=== PATIENT | female | born 1950 | race Caucasian/White ===

== ENCOUNTER 2016-08-20 16:59 | Emergency (ER) | payer MEDICARE ==
--- NOTE | 2016-08-21 11:40 | ER ---
ADMIT: 08/20/2016 RM/LOC: [facility] MR#: [id number] 26[address] [facility] [address] [place], [place] [address] CHRISTINA VEGA [address] [place] [address] Emergency Room Report SEX: F AGE: 66 : 1950 DATE: 08/20/2016 For chief complaint, history of present illness, past medical history, medications, allergies, review of systems, including physical exam, please see my T-sheet. INTERIM HISTORY: The patient is a 66-year-old white female, who presents to the emergency room with vomiting, diarrhea, and abdominal pain. It has been going on for about a day, woke up early this morning with her symptoms. She has been a little bit shaky and has felt "off." PAST MEDICAL HISTORY: Significant for appendectomy, cholecystectomy, and hysterectomy. She has also had a history of a DVT that they were not really sure from what with pulmonary embolism she is anticoagulated. She has not been running any fevers. Vital signs are stable excluding being slightly tachycardic at 113. On re-evaluation, she is 63. PHYSICAL EXAMINATION: ABDOMEN: Soft. There is no guarding and no rebound. LABORATORY EVALUATION: She does have a urinary tract infection with 286 white cells and 6 red cells. White count is normal. Chemistries are normal. EMERGENCY ROOM COURSE: The patient received IV fluids, a liter of bolus. She also received Levaquin 750 mg here in the Emergency Department. IMPRESSION: Urinary tract infection. PLAN: Home rest. Activity as tolerated. The patient was given instructions to drink plenty of fluids and follow up with her primary care after the antibiotics finished to be sure the infection is completely resolved. The patient is in stable condition. JUNIE Bridges / Sami Jerez MD / casi JOB #: [id number] CC: Sami Jerez MD, Attending Physician Sasha Corey PA-C, Family Physician
[2016-08-26] MEDS ORDERED: SYNTHROID25 MCG PO (19:56)
[2016-08-26] MEDS ORDERED: COUMADIN5 MG PO ×2 (19:56→19:57)
[2016-08-26] MEDS ORDERED: FEOSOL-DPS325 MG PO (19:57)
[2016-08-26] MEDS ORDERED: REQUIP0.25 MG PO (19:57)
[2016-08-26] MEDS ORDERED: ZESTRIL DPS10 MG PO (19:57)
[2016-08-26] MEDS ORDERED: EFFEXOR XR75 MG PO (19:58)
[2016-08-26] MEDS ORDERED: LOPRESSOR DPS50 MG PO (19:58)
[2016-08-26] MEDS ORDERED: DITROPAN-DPS5 MG PO (19:58)
[2016-08-26] MEDS ORDERED: VALIUM-DPS2 MG PO (20:00)
[2016-08-26] MEDS ORDERED: FLONASE 0.05% D16 GM NS (20:00)
[2016-08-26] MEDS ORDERED: TYLENOL #3 DPS1 TAB PO (20:00)
[2016-08-26] MEDS ORDERED: DULERA 200/58.8 GM IH (20:01)
[2016-08-26] MEDS ORDERED: TYLENOL DPS325 MG PO (20:01)
[2016-08-26] MEDS ORDERED: VITAMIN B-650 MG PO (20:01)
[2016-08-26] MEDS ORDERED: VENTOLIN HFA8 GM IH (20:01)
[2016-08-26] MEDS ORDERED: COLACE-DPS100 MG PO (20:02)
[2016-08-26] MEDS ORDERED: LEVAQUIN DPS500 MG PO (20:02)
[2016-08-26] MEDS ORDERED: MAALOX DPS30 ML PO (20:02)
[2016-10-22] MEDS ORDERED: CELEBREX200 MG PO (12:49)
[2016-10-22] MEDS ORDERED: LOVENOX DP100 MG/1 M SQ (12:57)
[2016-10-22] MEDS ORDERED: ULTRAM DPS50 MG PO (12:59)
[2016-10-22] MEDS ORDERED: MIRALAX PACKET17 GM PO (13:01)
[2016-10-22] MEDS ORDERED: DULCOLAX-DPS10 MG PR (13:02)
[2016-10-22] MEDS ORDERED: MILK OF MAGNESI10 ML PO (13:02)
[2016-10-22] MEDS ORDERED: TUMS DPS500 MG PO (13:03)
[2016-10-22] MEDS ORDERED: OXY IR DPS5 MG PO (13:03)
[2016-10-22] MEDS ORDERED: FLEXERIL-DPS10 MG PO (13:03)
[2016-10-22] MEDS ORDERED: ENEMA READY TO133 ML PR (13:04)
[2016-10-22] MEDS ORDERED: SENOKOT S1 TAB PO (13:06)
== END 2016-08-20 21:10 | disposition home or self-care (01) ==
LOC: ER 16:59
DX: N39.0 Urinary tract infection, site not specified (principal); Z90.49 Acquired absence of other specified parts of digestive tract; Z86.711 Personal history of pulmonary embolism; Z79.01 Long term (current) use of anticoagulants; Z86.718 Personal history of other venous thrombosis and embolism; Z90.710 Acquired absence of both cervix and uterus

== ENCOUNTER → 2016-09-19 | Outpatient (CLI) | payer MEDICARE, MEDICAID ==
[~2016-09-19] MED LIST: CELEBREX200 MG PO; COLACE-DPS100 MG PO; COUMADIN5 MG PO; DITROPAN-DPS5 MG PO; DULCOLAX-DPS10 MG PR; DULERA 200/58.8 GM IH; EFFEXOR XR75 MG PO; ENEMA READY TO133 ML PR; FEOSOL-DPS325 MG PO; FLEXERIL-DPS10 MG PO; FLONASE 0.05% D16 GM NS; LEVAQUIN DPS500 MG PO; LOPRESSOR DPS50 MG PO; LOVENOX DP100 MG/1 M SQ; MAALOX DPS30 ML PO; MILK OF MAGNESI10 ML PO; MIRALAX PACKET17 GM PO; OXY IR DPS5 MG PO; REQUIP0.25 MG PO; SENOKOT S1 TAB PO; SYNTHROID25 MCG PO; TUMS DPS500 MG PO; TYLENOL #3 DPS1 TAB PO; TYLENOL DPS325 MG PO; ULTRAM DPS50 MG PO; VALIUM-DPS2 MG PO; VENTOLIN HFA8 GM IH; VITAMIN B-650 MG PO; ZESTRIL DPS10 MG PO
== END | disposition home or self-care (01) ==
LOC: PTH.S 09-17 11:11 → SSS 10:56 → PTH.S 12:14
DX: Z01.818 Encounter for other preprocedural examination (principal)

== ENCOUNTER 2016-10-01 11:09 | Inpatient (IN) | payer MEDICARE, MEDICAID ==
[~2016-10-01] VITALS: Ht 165.1 cm; Wt 107.7 kg
[~2016-10-01 11:09] MED LIST changes: -CELEBREX200 MG PO; -DULCOLAX-DPS10 MG PR; -ENEMA READY TO133 ML PR; -FLEXERIL-DPS10 MG PO; -LOVENOX DP100 MG/1 M SQ; -MILK OF MAGNESI10 ML PO; -MIRALAX PACKET17 GM PO; -OXY IR DPS5 MG PO; -SENOKOT S1 TAB PO; -TUMS DPS500 MG PO; -ULTRAM DPS50 MG PO
--- NOTE | 2016-10-20 09:27 | OR ---
ADMIT: 10/18/2016 RM/LOC: 530 [facility] MR#: [id number] [address] [address] CHRISTINA VEGA [address] [place] [address] Operative/Delivery Room Report SEX: F AGE: 66 : 1950 SURGERY DATE: 10/18/2016 SURGEON: Clint Summers MD PREOPERATIVE DIAGNOSES: 1. Right hip degenerative joint disease. 2. Morbid obesity. POSTOPERATIVE DIAGNOSES: 1. Right hip degenerative joint disease. 2. Morbid obesity. PROCEDURES: 1. Right standard total hip arthroplasty. 2. Intraarticular block. ASSISTANTS: 1. Arsh Jason PA-C. 2. JUNIE Nguyễn. COMPLICATIONS: None. BLOOD LOSS: 200 mL. COMPONENTS: 1. A 52-mm Gription Hancock cup. 2. A 36 mm neutral AltrX liner. 3. Hole eliminator. 4. One acetabular screw. 5. An 8 standard offset Center stem. 6. +5, 36 mm metal head. DESCRIPTION OF PROCEDURE: The patient taken to the operating room, received a spinal anesthetic. She required extra assistance in OR due to her morbid obesity and deep tissues. She was placed in lateral decubitus position. The right hip was prepped and draped in a standard fashion. A posterior approach was performed. Dissection was carried to subcutaneous tissue. Her hip was very stiff. We identified the IT band and divided the fascia into the gluteus shun. At that point, identified the piriformis tendon. We released the piriformis tendon capsule and external rotators and one capsular flap. We were able then to dislocate the hip. At that point, we opened up the piriformis fossa with a reamer, reamed up to a size 7 reamer. Made a preliminary femoral neck cut based on templating. We then broached up to a size 7 stem, this was a still little bit loose, we reamed and broached up to a size 8. At that point, we had excellent stability. At that point, we left the broach in the canal to protect it. We then exposed the acetabulum. Her labrum was already calcified. We sequentially reamed up to a 51 mm reamer. We elected to use a 52-mm Gription cup using internal landmarks. We impacted a 52-mm Gription Hancock cup with an excellent press fit. We did place one supplemental screw for ADMIT: 10/18/2016 RM/LOC: 530 [facility] MR#: [id number] [address] [address] [facility] [place] [address] Operative/Delivery Room Report SEX: F AGE: 66 : 1950 fixation. At that point, placed a hole eliminator, impacted a 36 mm neutral AltrX liner. I did a partial intra-articular block around the acetabulum. At that point, we reduced the hip with a standard offset +5 head. At that point, we had good soft tissue tension. Could flex and internally rotate to 70 degrees with no dislocation. No impingement in extension. Good coverage in the position of sleep. At that point, dislocated the hip, removed the trial implants, re-exposed the femur, removed the broach, impacted a size 8 standard offset Center stem with an excellent press fit. Impacted a +5, 36 mm head and reduced the hip. It was again found to be stable. We completed our intraarticular block, repaired the posterior capsular structures with #5 Tycron and interrupted 0 Vicryl. Closed the tensor fascia with one #5 Tycron followed by interrupted and running 0 Vicryl suture, closed some of the deep fat with 0 Vicryl, some of the subcutaneous fat with 2-0 Vicryl, ran a subcuticular stitch followed by a Prineo hip wound dressing. At that point, she was taken to recovery room in stable condition with no complications. Clint Summers MD/ casi JOB #: [id number] CC: Clint Summers, Attending Physician Eduar Moran, Family Physician
[2016-10-22] MEDS ORDERED: CELEBREX200 MG PO (12:49)
[2016-10-22] MEDS ORDERED: LOVENOX DP100 MG/1 M SQ (12:57)
[2016-10-22] MEDS ORDERED: ULTRAM DPS50 MG PO (12:59)
[2016-10-22] MEDS ORDERED: MIRALAX PACKET17 GM PO (13:01)
[2016-10-22] MEDS ORDERED: MILK OF MAGNESI10 ML PO (13:02)
[2016-10-22] MEDS ORDERED: DULCOLAX-DPS10 MG PR (13:02)
[2016-10-22] MEDS ORDERED: FLEXERIL-DPS10 MG PO (13:03)
[2016-10-22] MEDS ORDERED: TUMS DPS500 MG PO (13:03)
[2016-10-22] MEDS ORDERED: OXY IR DPS5 MG PO (13:03)
[2016-10-22] MEDS ORDERED: ENEMA READY TO133 ML PR (13:04)
[2016-10-22] MEDS ORDERED: SENOKOT S1 TAB PO (13:06)
--- NOTE | 2016-10-29 10:16 | HP ---
ADMIT: 10/18/2016 RM/LOC: [facility] MR#: [id number] [address] [address] [address]ST[address] VEGA [address] [place] [address] Pre-OP History and Physical SEX: F AGE: 66 : 1950 DATE OF SERVICE: CHIEF COMPLAINT: Hip pain. HISTORY OF PRESENT ILLNESS: The patient is a 66-year-old female with a longstanding of history right hip pain. Hip pain limits her activity. She is now being cleared by Cardiology. Failed conservative care. Admitted for total hip arthroplasty. PAST MEDICAL PROBLEMS: Include a history of asthma, coronary artery disease, hypertension, history of DVTs. PAST SURGICAL HISTORY: Include hysterectomy and breast biopsy. MEDICATIONS: 1. Oxybutynin. 2. Vitamins. 3. Iron. 4. Tylenol. 5. Levothyroxine. 6. Advair. 7. Ventolin. 8. Hydrochlorothiazide. 9. Lisinopril. 10.Valium,. 11.Venlafaxine. 12.Coumadin. 13.Metoprolol. ALLERGIES: NONE. SOCIAL HISTORY: Denies any significant tobacco or alcohol use. REVIEW OF SYSTEMS: Negative. PHYSICAL EXAMINATION: Morbidly obese female, walks with very antalgic gait. She has a probably 30 degree external rotation contracture to the hip, minimal back pain. Pain with any motion of the right hip reproduces her symptoms. Leg is neurovascularly intact. ADMIT: 10/18/2016 RM/LOC: [facility] MR#: [id number] [address] [address] CHRISTINA VEGA [address] [place] [address] Pre-OP History and Physical SEX: F AGE: 66 : 1950 DIAGNOSTIC DATA: X-rays AP, lateral, shows advanced right hip arthritis. No joint space remaining. IMPRESSION: 1. Advanced right hip degenerative joint disease. 2. Morbid obesity. 3. History of deep vein thrombosis and pulmonary embolism. PLAN: We talked about different options. She has failed conservative care. At this point, plan on proceeding with a right standard total hip arthroplasty. She is aware of the risks, benefits, options and agreed to proceed. She has been seen and cleared from a medical standpoint. Clint Summers MD/ casi JOB #: [id number] CC: Clint Summers, Attending Physician UNKNOWN, Family Physician
--- NOTE | 2016-12-01 16:13 | CO ---
ADMIT: 10/18/2016 RM[facility]LOC: [facility] MR#: [id number] 2620 [facility] [address] [place] [address] [address]STINA VEGA [address] [place] [address] Consultation Report SEX: F AGE: 66 : 1950 DATE OF CONSULTATION: 10/07/2016 ATTENDING PHYSICIAN: Clint Summers CONSULTING PHYSICIAN: Eduar Moran MD REASON FOR CONSULT: Preoperative clearance. HISTORY OF PRESENT ILLNESS: Christina is a 66-year-old white female, who has had significant problems with right hip pain. She has exhausted all conservative measures. She is ambulatory with a cane barely, significant antalgic gait despite narcotic pain medication. Therefore, she is ready for right hip replacement. Her case is complicated by the fact that she does have a history of DVT and pulmonary emboli and will need to be on Lovenox bridge while she is off her Coumadin prior to the surgery, so she is here today to discuss that. She did have a recent stress test and echocardiogram last week at [facility], which was unremarkable and is ready to proceed. PAST MEDICAL HISTORY: Remarkable for: 1. Asthma. 2. Morbid obesity. 3. Meniere's disease. 4. Depression. 5. Hypothyroidism. 6. Urinary incontinence. 7. Hypertension. 8. Obstructive sleep apnea. 9. Restless legs syndrome. 10.Prior DVT and pulmonary emboli. PAST SURGICAL HISTORY: Include: 1. Partial hysterectomy. 2. Cholecystectomy. 3. Appendectomy. CURRENT MEDICATIONS: Include: 1. Advair Diskus 250/50, one inhalation b.i.d. 2. Ferrous sulfate 325 mg daily. 3. Fluticasone two sprays each side daily. 4. Vitamin B6, 100 mg b.i.d. 5. Hydrochlorothiazide 25 mg daily. 6. Percocet 5/325, one to two q.6 hours p.r.n. 7. Levothyroxine 25 mcg daily. 8. Lisinopril 10 mg daily. 9. Metoprolol 50 mg b.i.d. 10.Oxybutynin 5 mg b.i.d. 11.Ropinirole 0.25 mg at bedtime. 12.Venlafaxine ER 75 mg daily. 13.Warfarin 7.5 mg Friday and , and 5 mg Friday, Friday, Friday, ADMIT: 10/18/2016 RM/LOC: [facility] MR#: [id number] [address] [address] [facility] [place] [address] Consultation Report SEX: F AGE: 66 : 1950 Friday, and Friday. 14.Ventolin HFA two puffs q.6 hours p.r.n. ALLERGIES: ERIC INHIBITORS. SOCIAL HISTORY: She lives alone. Does not smoke or drink alcohol. She is retired. FAMILY HISTORY: Mother with diabetes. Father with leukemia. Two brothers with diabetes. One sister with diabetes. REVIEW OF SYSTEMS: GENERAL: No fevers or chills. HEENT: No headaches, blurry vision, or double vision. CARDIAC: No chest pains. PULMONARY: No shortness of breath. GASTROINTESTINAL: No nausea, vomiting, or diarrhea. : No dysuria, urgency, or frequency. Does have urinary incontinence. ENDOCRINE: No polyuria or polydipsia. PSYCH: No depression. INTEGUMENTARY: No new rashes. PHYSICAL EXAMINATION: VITAL SIGNS: Blood pressure is 126/76, pulse 57, respirations 18, temp 98.3. GENERAL: No acute distress. Alert, interactive, and oriented. HEENT: Pupils are reactive. Conjunctivae clear. TMs are clear. External pinnae are normal. Clear nasal mucosa. Clear oropharynx. Moist mucous membranes. NECK: Soft and supple. LUNGS: Clear to auscultation with normal respiratory effort. Decreased breath sounds noted. HEART: Regular rate and rhythm. Heart sounds are distant. ABDOMEN: Obese, soft, nontender. EXTREMITIES: No cyanosis, no clubbing. ASSESSMENT: 1. Right hip degenerative joint disease. 2. Hypertension. 3. Hypothyroidism. 4. Depression. 5. Morbid obesity. ADMIT: 10/18/2016 RM/LOC: [facility] MR#: [id number] [address] [address] [place] [address] Consultation Report SEX: F AGE: 66 : 1950 6. Obstructive sleep apnea. 7. Prior history of deep vein thrombosis and pulmonary emboli. PLAN: She is cleared for surgery at this point. However, she is going to be high risk for blood clots postoperatively. She will need to get back on full anticoagulation as soon as okay with Dr. Summers. We will have her stop her Coumadin 5 days before the procedure. Her last dose of Coumadin will be 10/12, and then on 10/13, she will start Lovenox 100 mg subcu b.i.d. and continue that until 10/17. Her last dose of Lovenox will be on a.m. of 10/17. Planning on surgery on 10/18, and again we will get her back on full anticoagulation as soon as approved with Dr. Summers. Myself or my partners will follow in the preoperative period. Eduar Moran MD/ casi JOB #: [id number] CC: Clint Summers, Attending Physician UNKNOWN, Family Physician
--- NOTE | 2016-12-18 16:14 | DS ---
ADMIT: 10/18/2016 RM/LOC: 530 [facility] MR#: [id number] [address] [address] [place] [address] General Discharge Summary SEX: F AGE: 66 : 1950 ADMISSION DATE: 10/18/2016 DISCHARGE DATE: 10/21/2016 REASON FOR ADMISSION: Elective right total hip arthroplasty after failing conservative care. PREOPERATIVE DIAGNOSIS: Right hip degenerative joint disease. POSTOPERATIVE DIAGNOSIS: Right hip degenerative joint disease. PROCEDURE PERFORMED: Right standard total hip arthroplasty. SURGEON: Clint Summers MD. ASSISTANTS: 1. Arsh Jason PA-C. 2. JUNIE Nguyễn. COMPLICATIONS: None. BLOOD LOSS: 200 mL. ANESTHESIA: Spinal. ACTIVE MEDICAL PROBLEMS: Asthma, morbid obesity, depression, hypothyroidism, urinary incontinence, hypertension, obstructive sleep apnea, restless legs syndrome, prior DVT and pulmonary emboli, and Meniere disease. HOSPITAL COURSE: The patient was admitted on 10/18/2016, for elective right total hip arthroplasty done successfully without any complications by Dr. Summers. The patient tolerated the procedure well. Postoperatively, she did well with pain control and with physical therapy exercises. She did suffer from some acute blood loss anemia. Her hemoglobin dropped to 8.4 on 10/20/2016, but she remained hemodynamically stable and did not require blood transfusion. She did request to go to a detention facility upon discharge for personal preference. By postoperative day #3, she was safe, stable, and ready for discharge to detention facility with plans for followup in 2 weeks. DISCHARGE MEDICATIONS: 1. Celebrex 200 mg twice a day. 2. Coumadin 5 mg Friday, Friday, Friday, Friday, and Friday. 3. Coumadin 7.5 mg Friday and . 4. Ditropan 5 mg twice a day. 5. Effexor 75 mg daily. 6. Feosol 325 mg daily. 7. Lopressor 25 mg twice a day. 8. MiraLax 17 g daily. 9. Senokot 2 tablets daily. ADMIT: 10/18/2016 RM/LOC: 530 [facility] MR#: [id number] [address] [address] [place] [address] General Discharge Summary SEX: F AGE: 66 : 1950 10.Synthroid 0.025 mg daily. 11.Tylenol 325 mg 2 tablets every 6 hours as needed. 12.Ultram 50 mg 1 to 2 tablets every 6 hours as needed for pain. 13.Zestril 10 mg daily. 14.Dulera 2 puffs twice a day. 15.Flonase 2 sprays daily. 16.Lovenox 100 mg every 12 hours. 17.Colace 100 mg twice a day as needed. 18.Dulcolax 5 mg twice a day as needed. 19.Flexeril 10 mg 3 times a day as needed. 20.Oxycodone IR 5 mg every 2 hours as needed. 21.Tums 500 mg every 2 hours as needed. DISCHARGE INSTRUCTIONS: The patient was discharged to a detention facility with plans for outpatient physical therapy per total hip arthroplasty protocol. Follow up in the orthopedic office for wound check in 2 weeks and with x-ray in 6 weeks. Follow up with primary care as directed. JUNIE Nguyễn / Clint Summers MD / casi JOB #: [id number] CC: Clint Summers MD, Attending Physician Eduar Moran MD, Family Physician
== END 2016-10-21 14:41 | DRG 470 ==
LOC: WOR 10-18 09:51 → 5MS 10-18 09:51
PROVIDERS: ADMIT Orthopaedic Surgery
PROC: 0SR902A Replacement of Right Hip Joint with Metal on Polyethylene Synthetic Substitute, Uncemented, Open Approach (ICD-10-PCS; principal; 2016-10-18)
DX: M16.11 Unilateral primary osteoarthritis, right hip (principal); E66.9 Obesity, unspecified; I10 Essential (primary) hypertension; D62 Acute posthemorrhagic anemia; Z68.37 Body mass index [BMI] 37.0-37.9, adult; I25.10 Atherosclerotic heart disease of native coronary artery without angina pectoris; H81.09 Meniere's disease, unspecified ear; F32.9 Major depressive disorder, single episode, unspecified; E03.9 Hypothyroidism, unspecified; J45.909 Unspecified asthma, uncomplicated; R32 Unspecified urinary incontinence; G47.33 Obstructive sleep apnea (adult) (pediatric); G25.81 Restless legs syndrome; Z86.711 Personal history of pulmonary embolism; Z86.718 Personal history of other venous thrombosis and embolism; Z79.01 Long term (current) use of anticoagulants

== ENCOUNTER → 2016-12-05 | Outpatient (CLI) | payer MEDICARE, MEDICAID ==
[~2016-12-05] MED LIST changes: +CELEBREX200 MG PO; +DULCOLAX-DPS10 MG PR; +ENEMA READY TO133 ML PR; +FLEXERIL-DPS10 MG PO; +LOVENOX DP100 MG/1 M SQ; +MILK OF MAGNESI10 ML PO; +MIRALAX PACKET17 GM PO; +OXY IR DPS5 MG PO; +SENOKOT S1 TAB PO; +TUMS DPS500 MG PO; +ULTRAM DPS50 MG PO
== END | disposition home or self-care (01) ==
LOC: RAD.S 12-03 13:00
DX: Z12.31 Encounter for screening mammogram for malignant neoplasm of breast (principal)

== ENCOUNTER → 2017-03-24 | Outpatient (CLI) | payer MEDICARE, MEDICAID | END | disposition home or self-care (01) | LOC: RAD.S 13:55 | DX: Z13.820 Encounter for screening for osteoporosis (principal); Z78.0 Asymptomatic menopausal state; M85.80 Other specified disorders of bone density and structure, unspecified site ==